=== PATIENT | male | born 1960 | race Caucasian/White ===

== ENCOUNTER 2021-01-26 05:45 | Day surgery (SDC) | payer OTHER ==
[~2021-01-26 05:45] MED LIST: CIPRO HC OTIC S10 ML OT; KETO10TA2 PO; MEDROLPACK PO; MOTRIN800 MG PO; ORPH100T PO
[2021-01-26] MEDS ORDERED: ALEVE220 M1 PO (08:36)
[2021-01-26] MEDS ORDERED: ULTRACET PO (08:36)
[2021-01-26] MEDS ORDERED: DUI500 PO (08:36)
== END 2021-01-26 13:00 | disposition home or self-care (01) ==
LOC: CIR.AMB 05:45
PROVIDERS: ATTEND Orthopaedic Surgery
DX: D16.31 Benign neoplasm of short bones of right lower limb (principal); L92.8 Other granulomatous disorders of the skin and subcutaneous tissue

== ENCOUNTER → 2021-02-05 08:30 | Outpatient (CLI) | payer OTHER ==
[~2021-02-05 08:30] MED LIST changes: +ALEVE220 M1 PO; +DUI500 PO; +ULTRACET PO
== END | disposition home or self-care (01) ==
LOC: PPH VACUNA 08:30
PROVIDERS: ATTEND Emergency Medicine Pediatric Emergency Medicine
DX: Z23 Encounter for immunization (principal)

== ENCOUNTER → 2021-08-17 | Outpatient (CLI) | payer OTHER | END | disposition home or self-care (01) | LOC: PPH VACUNA 08:00 | PROVIDERS: ATTEND Emergency Medicine Pediatric Emergency Medicine | DX: Z23 Encounter for immunization (principal) ==

== ENCOUNTER 2022-04-20 08:28 | Outpatient (CLI) | payer OTHER | END 2022-04-20 08:38 | disposition home or self-care (01) | LOC: PPH VACUNA 08:28 | PROVIDERS: ATTEND Emergency Medicine Pediatric Emergency Medicine | DX: Z23 Encounter for immunization (principal) ==

== ENCOUNTER 2022-04-20 08:30 | Outpatient (CLI) | payer OTHER | END 2022-04-20 08:40 | disposition home or self-care (01) | LOC: PPH VACUNA 08:30 | PROVIDERS: ATTEND Emergency Medicine Pediatric Emergency Medicine | DX: Z23 Encounter for immunization (principal) ==